=== PATIENT | female | born 2005 | race Caucasian/White ===

== ENCOUNTER → 2024-12-13 13:08 | Outpatient (REF) | payer OTHER, SELFPAY | LOC: HWRAD 13:08 | PROVIDERS: ATTENDING PHYSICIAN Nurse Practitioner Adult Health; FAMILY PHYSICIAN Family Medicine | DX: R10.2 Pelvic and perineal pain (principal); N94.19 Other specified dyspareunia | CPT/HCPCS: 76830; 76856 ==